=== PATIENT | male | born 1955 | race Caucasian/White ===

== ENCOUNTER 2023-05-08 14:10 | Inpatient (IN) | payer MEDICARE, OTHER ==
[~2023-05-08] VITALS: Ht 172.7 cm; Wt 43.5 kg
--- NOTE | 2023-05-08 14:17 | NUR ---
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 BLOOD GLUCOSE 113 PER EMS. PT ALSO C/O BACK PAIN, HAS HX OF CHRONIC BACK PAIN 9/10 ON PAIN SCALE. ATTACHED TO MONITOR. WARM BLANKET PROVIDED FOR COMFORT. AWAITING MD HANEY.
[2023-05-08] MEDS ORDERED: IV NS 0.9% 1,000 ML BAG IV ONE (15:00)
--- NOTE | 2023-05-08 15:10 | NUR ---
PT UNABLE TO PROVIDE URINE AT THIS TIME, URINAL AT BEDSIDE WITHIN PT'S REACH
[2023-05-08 15:26] LABS: CALCIUM, SERUM 8.6 mg/dL (8.5-10.1); CARBON DIOXIDE 21 mmol/L (21-32); CHLORIDE 106 mmol/L (98-107); CREATININE 1.1 mg/dL (0.6-1.3); GLUCOSE 89 mg/dL (74-106); SODIUM SERUM 139 mmol/L (136-145); UREA NITROGEN, BLOOD 16 mg/dL (7-18)
[2023-05-08 15:27] LABS: POTASSIUM 2.7 mmol/L (3.5-5.1)
[2023-05-08 15:32] LABS: ALANINE AMINOTRANSFERASE 14 U/L (12-78); ALBUMIN 3.3 g/dL (3.4-5.0); ALKALINE PHOSPHATASE 117 U/L (46-116); ASPARTATE AMINOTRANSFERASE 14 U/L (15-37); BILIRUBIN,DIRECT 0.1 mg/dL (0.0-0.2); BILIRUBIN,TOTAL 0.2 mg/dL (0.2-1.0)
[2023-05-08 15:40] LABS: THYROID STIMULATING HORMONE 1.933 uIU/mL (0.358-3.74)
[2023-05-08 15:47] LABS: BASOPHILS # (AUTO) 0.1 K/uL (0.0-0.2); BASOPHILS % (AUTO) 1.3 % (0.0-2.0); EOSINOPHILS % (AUTO) 5.2 % (0.0-6.0); HEMATOCRIT 31 % (39-51); HEMOGLOBIN 10.2 g/dL (13.5-17.5); MEAN CORPUSCULAR HGB CONC 33 g/dl (31.0-36.0); MEAN CORPUSCULAR VOLUME 89 fL (80-96); MONOCYTES # (AUTO) 0.2 K/uL (0.1-1.30); MONOCYTES % (AUTO) 3.3 % (2.0-12.0); NEUTROPHILS # (AUTO) 4.6 K/uL (1.8-8.9); NEUTROPHILS % (AUTO) 63.2 % (43.0-81.0); PLATELET COUNT (AUTO) 308 K/uL (150-450); RED BLOOD CELL COUNT(AUTO) 3.53 MIL/uL (4.5-6.0); WHITE BLOOD COUNT (AUTO) 7.3 K/uL (4.3-11.0)
[2023-05-08] MEDS: POTASSIUM CL. PREMIX PERIPHER. 50 ML IV SCH ×3 (15:50→20:03)
[2023-05-08] MEDS ORDERED: POTASSIUM CHLORIDE 20 MEQ TAB.PRT.SR PO ONE (16:00)
[2023-05-08] MEDS ORDERED: HYDROCODONE/APAP 10/325MG TABLET ONE (16:30)
[2023-05-08] MEDS ORDERED: MORPHINE SULFATE INJ 2 MG/ML DISP.SYRIN ONE (16:30)
[2023-05-08] MEDS ORDERED: HYDROCODONE/APAP 10/325MG TABLET PO ONE (16:30)
[2023-05-08] MEDS ORDERED: MORPHINE SULFATE INJ 2 MG/ML DISP.SYRIN IV ONE (16:30)
[2023-05-08] MEDS ORDERED: ACETAMINOPHEN 325 MG TABLET PO PRN (17:00)
[2023-05-08] MEDS ORDERED: ZOLPIDEM TARTRATE 5 MG TABLET PO PRN (17:00)
[2023-05-08] MEDS ORDERED: MAG HYDROX/AL HYDROX/SIMETH 30 ML UDC PO PRN (17:00)
[2023-05-08] MEDS ORDERED: Z GUARD REMEDY 4 OZ OINT TP PRN (17:00)
[2023-05-08] MEDS ORDERED: MAGNESIUM HYDROXIDE 30 ML UDC PO PRN (17:00)
--- NOTE | 2023-05-08 17:01 | NUR ---
ROOM 114-2 , ADMITTING AWARE
[2023-05-08 17:18] LABS: BILIRUBIN,URINE NEGATIVE (NEGATIVE); COLOR,URINE YELLOW (YELLOW); LEUKOCYTE ESTERASE ,URINE NEGATIVE (NEGATIVE); NITRITE, URINE NEGATIVE (NEGATIVE); PH,URINE 6.5 (5.0-8.0); PROTEIN,URINE NEGATIVE (NEGATIVE); UGLUCOSE NEGATIVE (NEGATIVE); UROBILINOGEN,URINE 0.2 EU/dL (0.2)
--- NOTE | 2023-05-08 17:35 | NUR ---
REPORT GIVEN TO MALDONADO FOR DEBBIE
--- NOTE | 2023-05-08 18:24 | NUR ---
PT TAKEN TO TELE FLOOR WITH ACLS PROTOCOLS IN PLACE.
--- NOTE | 2023-05-08 18:50 | NUR ---
BUTTON CLAMPER NOTES Received pt from ER AOX4. No complaints of pain or discomfort at this time. Pt is on RA and tolerating it well. Vital signs as follows BP 152/73, HR 56, RR 14, O2 saturation is 99%, temperature is 97.5 degrees Fahrenheit. IV acces on LAC 18G currently running potassium IV. HOB elevated to 30-45 degrees. Siderails up at all times x4. Call light within reach. Will endorse to oncoming nurse.
[2023-05-08 20:00] VITALS: BP 98/57; TEMP 98
--- NOTE | 2023-05-08 20:00 | NUR ---
POOL LIFEGUARD NOTES Pt is AOX4. No complaints of pain or discomfort at this time. Pt is on RA and tolerating it well. no SOB noted no respiratory distress. IV acces on LAC 18G currently running potassium IV. Potassium running on slower rate to discomfort on IV site. No complication on IV site noted. HOB elevated to 30-45 degrees. Siderails up at all times x3. Bed is locked and in lowest position. Call light within reach. Will continue with plan of care.
[2023-05-08] MEDS ORDERED: oxyCODONE HCL SR 10MG TAB.SR.12H PO PRN (21:30)
--- NOTE | 2023-05-08 21:30 | NUR ---
LEATHER STITCHER NOTE PT C/O SEVERE PAIN . MD GIORDANO NOTIFIED WITH NEW ORDER. NOTED AND CARRIED OUT.
[2023-05-08] MEDS: MORPHINE SULFATE INJ 4 MG/ML DISP.SYRIN IVP PRN (21:45)
[2023-05-09] VITALS: BP 98/57; TEMP 98
[2023-05-09] MEDS: oxyCODONE IR immediate release 5 MG PO PRN ×4 (00:15→15:38)
[2023-05-09] MEDS: POTASSIUM CL. PREMIX PERIPHER. 50 ML IV SCH (01:04)
[2023-05-09] MEDS: IV NS 0.9% 1,000 ML IV PRN ×2 (03:25→11:27)
[2023-05-09 04:00] VITALS: BP 97/55; TEMP 98
--- NOTE | 2023-05-09 04:30 | NUR ---
RN NOTE Per Dr. Lindo, ok to give PRN pain med (Morphine) as long as SBP >90.
[2023-05-09] MEDS: MORPHINE SULFATE INJ 4 MG/ML DISP.SYRIN IVP PRN ×2 (05:42→20:16)
--- NOTE | 2023-05-09 07:07 | NUR ---
RN NOTES RECIEVED PT ON BED, A/Ox4, ON TELE SR , IVF AT 75 CC/HR RUNNING , SAFELY MEASURES IN PLACED , SR UP x3, CALL LIGHT WITHIN EASY REACH, BED LOCKED AND IN LOWEST POSITION, CONTINUE TO MONITOR
[2023-05-09 07:19] LABS: BASOPHILS # (AUTO) 0.1 K/uL (0.0-0.2); BASOPHILS % (AUTO) 1.3 % (0.0-2.0); EOSINOPHILS % (AUTO) 7.3 % (0.0-6.0); HEMATOCRIT 29 % (39-51); HEMOGLOBIN 9.4 g/dL (13.5-17.5); LYMPHOCYTES # (AUTO) 2.7 K/uL (0.8-4.8); LYMPHOCYTES % (AUTO) 43.3 % (20.0-44.0); MEAN CORPUSCULAR HGB CONC 33 g/dl (31.0-36.0); MEAN CORPUSCULAR VOLUME 89 fL (80-96); MONOCYTES # (AUTO) 0.3 K/uL (0.1-1.30); MONOCYTES % (AUTO) 5.5 % (2.0-12.0); NEUTROPHILS # (AUTO) 2.7 K/uL (1.8-8.9); NEUTROPHILS % (AUTO) 42.6 % (43.0-81.0); PLATELET COUNT (AUTO) 327 K/uL (150-450); RED BLOOD CELL COUNT(AUTO) 3.21 MIL/uL (4.5-6.0); WHITE BLOOD COUNT (AUTO) 6.3 K/uL (4.3-11.0)
--- NOTE | 2023-05-09 07:20 | NUR ---
HAT FORMER CLOSING NOTES Pt is AOX4. Pt is having pain at this time, PRN medication given as ordered. Pt is on RA and tolerating it well. no SOB noted no respiratory distress. IV acces on LAC 18G currently running potassium IV. Potassium running on slower rate due to discomfort on IV site. No complication on IV site noted. All meds are given as ordered. Pain meds are given PRN. HOB elevated to 30-45 degrees. Side rails up at all times x3. Bed is locked and in lowest position. Call light within reach. Will endorse care to AM shift RN..
[2023-05-09 07:49] LABS: CALCIUM, SERUM 7.7 mg/dL (8.5-10.1); CREATININE 0.8 mg/dL (0.6-1.3); MAGNESIUM 1.7 mg/dL (1.8-2.4); PHOSPHORUS 2.9 mg/dL (2.5-4.9); POTASSIUM 4.2 mmol/L (3.5-5.1)
[2023-05-09] MEDS ORDERED: MORP15TA7 PO (07:51)
[2023-05-09] MEDS ORDERED: GABA-532 PO (07:51)
[2023-05-09] MEDS ORDERED: OXYC1TAB12 MT (07:51)
[2023-05-09 08:00] VITALS: BP 122/67; TEMP 97.5
[2023-05-09] MEDS: PANTOPRAZOLE 40 MG TABLET.DR PO SCH (08:23)
[2023-05-09] MEDS ORDERED: MAGNESIUM OXIDE 400 MG TABLET PO ONE (10:00)
[2023-05-09 12:00] VITALS: BP 130/56; TEMP 98.1
[2023-05-09] MEDS: ENSURE ENLIVE CHOC 237 ML CAN PO SCH ×2 (12:20→17:24)
[2023-05-09] MEDS: ONDANSETRON HCL/PF 4 MG/2 ML VIAL IVP PRN (15:38)
[2023-05-09 16:00] VITALS: BP 125/71; TEMP 97.8
--- NOTE | 2023-05-09 18:21 | NUR ---
RN NOTES NO SIGNIFICANT CHANGES NOTED ON THIS SHIFT, WILL ENDORSE TO METER TESTER POLYPHASE NURSE FOR CONTINUITY OF CARE
--- NOTE | 2023-05-09 19:05 | NUR ---
TELE/RN NOTE Received pt in bed, alert, awake, and verbally responsive. Denies pain or discomfort at this time. On room air, no sob, nad. Afebrile. PIV access on LAC #18G patent, flushing well, no s/sx of infx/infiltration, dressing CDI, infusing NS at 75ml/hr, well tolerated. HOB elevated for comfort. Call light within easy reach. Bed locked and in lowest position. Will cont plan of care.
[2023-05-09 20:00] VITALS: BP 133/56; TEMP 98
[2023-05-10] VITALS: BP 110/79; TEMP 98.3
[2023-05-10] MEDS: oxyCODONE IR immediate release 5 MG PO PRN ×2 (00:42→08:49)
[2023-05-10] MEDS: IV NS 0.9% 1,000 ML IV PRN (00:42)
[2023-05-10] MEDS: ONDANSETRON HCL/PF 4 MG/2 ML VIAL IVP PRN ×2 (00:43→10:14)
[2023-05-10 04:00] VITALS: BP 115/69; TEMP 98.5
[2023-05-10 07:08] LABS: BASOPHILS # (AUTO) 0.1 K/uL (0.0-0.2); BASOPHILS % (AUTO) 0.6 % (0.0-2.0); EOSINOPHILS % (AUTO) 4.8 % (0.0-6.0); HEMATOCRIT 29 % (39-51); HEMOGLOBIN 9.6 g/dL (13.5-17.5); LYMPHOCYTES # (AUTO) 2.2 K/uL (0.8-4.8); LYMPHOCYTES % (AUTO) 24.4 % (20.0-44.0); MEAN CORPUSCULAR HGB CONC 33 g/dl (31.0-36.0); MEAN CORPUSCULAR VOLUME 89 fL (80-96); MONOCYTES # (AUTO) 0.4 K/uL (0.1-1.30); MONOCYTES % (AUTO) 4.4 % (2.0-12.0); NEUTROPHILS % (AUTO) 65.8 % (43.0-81.0); PLATELET COUNT (AUTO) 293 K/uL (150-450); WHITE BLOOD COUNT (AUTO) 9.1 K/uL (4.3-11.0)
[2023-05-10 07:09] LABS: CREATININE 0.6 mg/dL (0.6-1.3); MAGNESIUM 1.7 mg/dL (1.8-2.4)
--- NOTE | 2023-05-10 07:13 | NUR ---
TELE/RN NOTE Pt remains in stable condition, no significant changes noted. Remains on room air, no sob, nad. Will endorse to morning shift for continuity of care.
--- NOTE | 2023-05-10 07:30 | NUR ---
CERTIFIED PROCEDURAL CODER NOTE Patient is resting in bed and complained about severe back pain, just administered IV morphine. regrinder operator showed SR 77/min. Left AC IV site is dry and intact, with NS running at 75mL/hr. Will keep monitoring of vital signs and pain level.
[2023-05-10] MEDS: MORPHINE SULFATE INJ 4 MG/ML DISP.SYRIN IVP PRN ×2 (07:41→11:44)
--- NOTE | 2023-05-10 07:41 | NUR ---
TELE/RN NOTE Pt c/o 10/10 pin on lower back, pt restless and anxious, PRN pain medication given per pt's request as ordered. Will endorse and communicate to am shift nurse.
[2023-05-10 08:00] VITALS: BP 119/64; TEMP 99.3
[2023-05-10] MEDS: ENSURE ENLIVE CHOC 237 ML CAN PO SCH ×2 (08:49→11:35)
[2023-05-10] MEDS: PANTOPRAZOLE 40 MG TABLET.DR PO SCH (08:49)
[2023-05-10] MEDS ORDERED: K PHOS NEUTRAL 250 MG TABLET PO ONE (09:00)
[2023-05-10] MEDS ORDERED: MAGNESIUM OXIDE 400 MG TABLET PO ONE (09:00)
--- NOTE | 2023-05-10 12:33 | NUR ---
CHILDCARE WORKER NOTE Patient is for discharge today. He contacted his family member for discharge and arranged for a transportation. Left arm IV site is removed and hemostasis achieved. Patient is able to walk with cane with steady gait. Left the unit at 12:25.
== END 2023-05-10 12:25 | disposition home or self-care (01) | DRG 641 ==
LOC: ER 14:23 → TELE1 17:21
PROVIDERS: ADMIT Student in an Organized Health Care Education/Training Program; ATTEND Nurse Practitioner Acute Care
DX: E87.6 Hypokalemia (principal); Z68.1 Body mass index [BMI] 19.9 or less, adult; E44.0 Moderate protein-calorie malnutrition; E86.0 Dehydration; I95.89 Other hypotension; G89.29 Other chronic pain; M54.50 Low back pain, unspecified; Z98.890 Other specified postprocedural states; E83.42 Hypomagnesemia; R53.1 Weakness; R26.2 Difficulty in walking, not elsewhere classified; I25.2 Old myocardial infarction; Z95.5 Presence of coronary angioplasty implant and graft
CPT/HCPCS: 36415; 71045-TC; 80048-TC; 80076-TC; 83735-TC; 84100-TC; 84443-TC; 84484-TC; 85025-TC; 87081-TC; 97112-TC; 97116-TC; 97530-TC; A4223; G0378; J2270; J2405; J3480; J7030